=== PATIENT | female | born 1970 | race Caucasian/White ===

== ENCOUNTER 2016-05-27 11:30 | Emergency (ER) ==
[2016-05-27 12:05] VITALS: BP 134/86
--- NOTE | 2016-05-27 13:25 | PROVIDER DOCUMENTATION ---
HPI-Musculoskeletal Pain/Inj - GENERAL Chief Complaint: Extremity Injury Stated Complaint: TOE INJURY Time Seen by Provider: 05/27/16 13:13 Source: patient - HX OF PRESENT ILLNESS-MUSKULOSKELTAL Nature of Presenting Problem: 45 y/o Wf c/o kicking the door because she was angry at her . States she cannot bend her big toe or walk on it now. States she can ambulate, but it is painful. Denies other injuries. Review of Systems - Adult - REVIEW OF SYSTEMS - ADULT Constitutional: reports: no symptoms reported. denies: chills, fatique Eyes: reports: no symptoms reported. denies: double vision, eye pain Ears, Nose, Mouth & Throat: reports: no symptoms reported. denies: ear pain, nose pain, throat pain Cardiovascular: reports: no symptoms reported. denies: chest pain, palpitations Respiratory: reports: no symptoms reported. denies: cough, shortness of breath Gastrointestinal: reports: no symptoms reported. denies: abdominal pain, diarrhea, nausea, vomiting Genitourinary: reports: no symptoms reported. denies: dysuria, discharge, frequency, incontinence Musculoskeletal: reports: see HPI, bone pain, joint pain, muscle aches. denies : back pain, joint swelling Integumentary: reports: no symptoms reported. denies: rash Neurological: reports: no symptoms reported. denies: headache/migraines Psychiatric: reports: no symptoms reported Endocrine: reports: no symptoms reported Hematologic/Lymphatic: reports: no symptoms reported Allergic/Immunologic: reports: no symptoms reported All Other Systems: Reviewed and Negative Past History - Adult - PAST MEDICAL HISTORY-ADULT Review of Records: reports: Old Records Reviewed, Nursing Assessment Review, Medications Reviewed, Social history reviewed & non-contributory. Major Childhood Illnesses: reports: denies history Cardiovascular: reports: denies history Respiratory: reports: denies history, other (sleep apnea (CPAP)) Gastrointestinal: reports: denies history Obstetrical/Gynecological: reports: denies history Genitourinary: reports: kidney stones Musculoskeletal: reports: denies history Neurological: reports: denies history Psychiatric: reports: anxiety, depression, psychiatric problems, suicide attempt Endocrine/Immune: reports: denies history Other Conditions: reports: denies history - PRIOR SURGERIES/PROCEDURES Surgical/Procedure History: reports: , orthopedic (extremity) - PRIOR HOSPITALIZATIONS Prior Hospitalizations: reports: none - IMMUNIZATION STATUS Childhood Immunizations: See Nurse Assessment Flu Vaccine: See Nurse Assessment - FAMILY HISTORY Family History: reviewed, not pertinent - SOCIAL HISTORY Smoking: denies Substance Use: none/never Alcohol Use Frequency: occasionally Living Situation: family Physical Exam-Injury Related - Physical Exam-Injury Related General Appearance: appears well, alert, no apparent distress Eyes: PERRL/EOMI, pink conjunctivae Head, Ears, Nose, Mouth & Throat: normocephalic/atraumatic, moist mucous membranes, normal ENT inspection Neck: non-tender, full range of motion, supple, normal inspection Respiratory: chest non-tender, lungs clear, normal breath sounds, no pleuratic chest pain, no respiratory distress, no accessory muscle use. negative: respiratory distress, decreased breath sounds, accessory muscle use, crackles, rales, rhonchi, stridor, wheezing Cardiovascular: normal peripheral pulses, regular rate, rhythm, no edema, no gallop, no JVD, no murmur Peripheral Pulses: dorsalis-pedis (R): 2+, dorsalis-pedis (L): 2+ Lymphatic: no adenopathy Extremity: normal gait, no pedal edema, no calf tenderness, normal capillary refill, pelvis stable, other (right great toe has obvious ecchymosis, with decreased extensionand flexion secondary to pain.) Integumentary: normal color, warm/dry Neurologic: grossly normal, no motor/sensory deficits Psych/Mental Status: AL, normal mood/affect, normal thought content, normal thought process, oriented x 3 - Glascow Coma Score Best Eye Response ([place]): (4) open spontaneously Best Verbal Response ([place]): (5) oriented Best Motor Response ([place]): (6) obeys commands Progress - PLAN OF CARE/RESULTS Progress/Plan/Lab Results: Vital Signs Temp Pulse Resp BP Pulse Ox 05/27/16 12:02 97.6 F 88 20 134/86 98 guaifenesin [From Mucinex] Allergy (Verified 04/11/16 01:27) SWELLING Tramadol [Ultram] 50 mg PO Q6H PRN PRN #30 tablet 01/13/16 Trazodone [Desyrel] 100 mg PO QHS 04/11/16 Tramadol [Ultram] 50 mg PO Q8HR #20 tablet 05/27/16 Orders Category Date Time Status Boot, Mid-Calf Walking DIRECTED Care 05/27/16 13:26 Active TOE(S)-RIGHT [RAD] Stat Exams 05/27/16 12:06 Taken - XRAY 1 XRAY: Right XRAY Study: Foot (toes) Impression: Abnormal (possible avulsion fracture reviewede with Dr. Mann) Procedures - SPLINTING Right Lower Extremity Pre-Procedure Neurovascular Exam: Intact Pre-Fabricated Splint: Walking Boot (mid calf) Applied By: lapper Assisted By: lapper Post Procedure Neurovascular Exam: Intact Departure - Departure Time of Disposition Order: 13:25 DIAGNOSIS: Toe injury Qualifiers: Encounter type: initial encounter Laterality: left Qualified Code(s): S99.922A - Unspecified injury of left foot, initial encounter Disposition: HOME 01 Certified Medical Emergency: Emergent Condition: Stable Additional Instructions: Follow up with Dr. Henry if you continue to have problems. ED Follow Up Instructions: You have been treated by a care provider in the Emergency Department. These instructions are being provided to you so you can have an understanding of how to care for yourself upon discharge. Upon discharge from the Emergency Department, you are responsible for making arrangements for follow-up care by a physician of your choice. Take all prescribed medications as directed. Return to the Emergency Department immediately for any new or worsening symptoms. You may call the Physician Referral phone number at [phone] to obtain a list of Physicians who are taking new patients. Prescriptions: Tramadol [Ultram] 50 mg PO Q8HR #20 tablet Referrals: Ambrosio Morin [Primary Care Provider] - Seda Henry MD [STAFF PHYSICIAN] - Attestation - Physician/ Mid-level Attestation Patient care was provided by Mid-level provider (LANDING SCALER/PA):: Yes Mid-level provider:: Padmini Barron Mid-level documentation review:: The Mid-level provider documentation, treatment plan and medical decision making was reviewed by the physician who agrees with all treatment and medical decision making by the P.
--- NOTE | 2016-05-27 13:58 | Diag Imaging Result Document ---
PROCEDURE NAME: TOE(S)-RIGHT - 05/27/2016 PLAIN RADIOGRAPH OF THE RIGHT GREAT TOE 3 VIEWS: COMPARISON: None available. FINDINGS: There is a small avulsion fracture seen at the dorsal aspect of the great toe IP joint. It is best appreciated on the lateral view. There is mild displacement. Soft-tissue edema is seen around the great toe. IMPRESSION: Small avulsion fracture at the dorsal aspect of the great toe IP joint as described.
== END 2016-05-27 14:09 | disposition home or self-care (01) ==
LOC: ED 11:30
DX: S99.922A Unspecified injury of left foot, initial encounter (principal); M25.572 Pain in left ankle and joints of left foot; M89.8X7 Other specified disorders of bone, ankle and foot; M79.1 Myalgia; W22.8XXA Striking against or struck by other objects, initial encounter; G47.30 Sleep apnea, unspecified; Z87.442 Personal history of urinary calculi
CPT/HCPCS: 73660; 99283